=== PATIENT | male | born 1975 | race African-American/Black ===

== ENCOUNTER 2022-06-03 21:31 | Observation (INO) ==
[2022-06-03] MEDS ORDERED: 0.9 % Sodium Chloride 1,000 ML IV ONE (21:39)
[2022-06-03] MEDS ORDERED: Insulin Human Regular 10 UNIT in 0.9 % Sodium Chloride 10 ML IV ONE (21:39)
[2022-06-03 21:57] LABS: VBG PH 7.43 pH Units (7.32-7.42)
[2022-06-03 22:06] LABS: Basophils # 0.1 K/mcL (0.0-0.2); Basophils % 0.7 %; Eosinophils # 0.1 K/mcL (0.0-0.6); Eosinophils % 1.2 %; Hematocrit 42.1 % (37.5-50.1); Hemoglobin 14.9 g/dL (12.9-16.9); Immature Granulocytes % 0.2 % (0-4); Lymphocytes # 3.3 K/mcL (0.6-4.6); Lymphocytes % 32.8 %; Mean Corpuscular HGB Conc 35.4 g/dL (31.6-35.5); Mean Corpuscular Hemoglobin 29.9 pg (28.0-33.3); Mean Corpuscular Volume 84.4 fL (83.0-100.0); Mean Platelet Volume 10.6 fL (9.4-12.4); Monocytes # 0.8 K/mcL (0.0-1.3); Monocytes % 7.8 %; Neutrophils # 5.8 K/mcL (1.6-8.9); Platelet Count 290 K/mcL (140-400); Red Blood Count 4.99 M/mcL (4.19-5.50); Red Cell Distribution Width 12.4 % (11.5-14.5); Segmented Neutrophils % 57.3 %; White Blood Count 10.1 K/mcL (4.3-11.1)
[2022-06-03 22:09] LABS: Bilirubin,Urine Negative (Negative); Blood,Urine Negative (Negative); Clarity,Urine Clear (Clear); Color,Urine Yellow (Yellow); Glucose,Urine (UA) >=1000 mg/dL (Normal); Ketones,Urine 15 mg/dL (Negative); Leukocyte Esterase,Urine Negative (Negative); Nitrite,Urine Negative (Negative); Protein,Urine Negative (Neg-Trace); Specific Gravity,Urine <= 1.005 (1.010-1.025); Urobilinogen,Urine Normal (Normal)
[2022-06-03 22:45] LABS: Potassium 4.2 mEq/L (3.5-5.1)
[2022-06-04] MEDS: 0.9 % Sodium Chloride 1,000 ML IVC SCH ×4 (00:17→15:52)
[2022-06-04] MEDS ORDERED: Insulin Human Regular 10 UNIT in 0.9 % Sodium Chloride 10 ML IV ONE (01:34)
[2022-06-04 06:00] VITALS: TEMP 98.7
[2022-06-04 07:28] LABS: BUN/Creatinine Ratio 12 (6-26); Blood Urea Nitrogen 11 mg/dL (6-20); Calcium 8.4 mg/dL (8.6-10.3); Carbon Dioxide 23 mEq/L (23-29); Chloride 104 mEq/L (98-107); Glucose 282 mg/dL (70-105); Osmolality,Calculated 288 (280-300); Potassium 3.9 mEq/L (3.5-5.1); Sodium 134 mEq/L (136-145)
[2022-06-04] MEDS ORDERED: Naloxone 0.4 MG/ML INJ IVP PRN (08:53)
[2022-06-04] MEDS ORDERED: Ondansetron 4 MG/2 ML VIAL IVP PRN (08:53)
[2022-06-04] MEDS ORDERED: Acetaminophen 325 MG TABLET PO PRN (08:53)
[2022-06-04] MEDS ORDERED: *HR* Dextrose 50 % in Water (Syg) 50 ML SYRINGE IVP PRN (08:56)
[2022-06-04] MEDS ORDERED: D5% in Water 1,000 ML IVC PRN (08:56)
[2022-06-04] MEDS ORDERED: Dextrose Gel 15 GM/37.5 ML TUBE PO PRN ×2 (08:56)
[2022-06-04 10:53] LABS: Estimated Average Glucose 332 mg/dl; Hemoglobin A1C 13.2 %
[2022-06-04 11:01] VITALS: PULSE 78; RESP 20
[2022-06-04] MEDS: Insulin LISPRO 300 UNITS/3 ML VIAL SUBQ SCH ×2 (13:44→17:57)
[2022-06-04] MEDS ORDERED: Insulin DETEMIR 100 UNIT/ML X5UNITS SUBQ ONE (15:44)
[2022-06-04 16:20] VITALS: BP 133/74; O2SAT 100
[2022-06-04] MEDS ORDERED: GlipiZIDE 5 MG TABLET PO SCH (17:00)
[2022-06-04] MEDS ORDERED: *HR* Metformin 500 MG TABLET PO SCH (17:00)
[2022-06-04] MEDS ORDERED: Insulin LISPRO 300 UNITS/3 ML VIAL SUBQ SCH (21:00)
== END 2022-06-04 18:44 | disposition home or self-care (01) ==
LOC: EMEROOPIK 21:31 → INPPIK 21:31
PROVIDERS: ADMIT Family Medicine; ATTEND Family Medicine